=== PATIENT | female | born 2000 | race American Indian/Alaskan Native ===

== ENCOUNTER 2018-06-21 07:39 | Emergency (ER) | payer SELFPAY ==
[2018-06-21 09:00] LABS: Basophils # (Auto) 0.1 K/mm3 (0.0-0.1); Basophils % (Auto) 0.4 % (0.0-1.8); Eosinophils % (Auto) 0.1 % (0.0-4.3); Hematocrit 37.4 % (30.3-42.9); Hemoglobin 12.2 gm/dl (10.1-14.3); Lymphocytes # (Auto) 1.1 K/mm3 (1.2-5.4); Lymphocytes % (Auto) 7.9 % (13.4-35.0); Mean Corpuscular HGB Conc 33 % (30-34); Mean Corpuscular Hemoglobin 26 pg (28-32); Mean Corpuscular Volume 81 fl (79-97); Monocytes # (Auto) 1.1 K/mm3 (0.0-0.8); Monocytes % (Auto) 7.7 % (0.0-7.3); Platelet Count 198 K/mm3 (140-440); Red Blood Count 4.64 M/mm3 (3.65-5.03)
[2018-06-21 09:21] LABS: Bilirubin,Urine NEG (Negative); Blood,Urine NEG (Negative); Color,Urine Yellow (Yellow); Mucus,Urine 3+ /HPF
[2018-06-21 09:24] LABS: Alanine Aminotransferase 11 units/L (7-56); Albumin 4.9 g/dL (3.9-5); BUN/Creatinine Ratio 14; Blood Urea Nitrogen 7 mg/dL (7-17); Calcium 9.4 mg/dL (8.4-10.2); Hemolysis Index 6
[2018-06-21] MEDS ORDERED: TORADOL IV ONE (09:51)
[2018-06-21] MEDS ORDERED: ZOFRAN IV ONE (09:51)
[2018-06-21] MEDS ORDERED: PEPCID IV ONE (09:51)
--- NOTE | 2018-06-21 09:54 | Emergency Department Report ---
Blank Doc - Documentation Documentation: Patient is a 17-year-old -[place] female states for the past 3-4 days she's had central suprapubic abdominal pain. Patient states that she's had episodes of chills. Patient vomited this morning before arrival. Patient states she's has some loose stools that she feels has scant amount of blood in it. Patient denies having any dysuria or vaginal bleeding at this time. Focused physical exam patient has lower bilateral abdominal pain. Is no rebound or guarding she does have bowel sounds. Patient is in moderate distress secondary to pain and is crying on exam. Patient does appear uncomfortable. Laboratory studies will be reviewed patient will have a CT of abdomen and pelvis performed. Patient will be reassessed
[2018-06-21] MEDS ORDERED: D5NS 1,000 ML IV SCH (10:00)
--- NOTE | 2018-06-21 11:28 | Emergency Department Report ---
ED Abdominal Pain HPI - General Chief Complaint: Abdominal Pain Stated Complaint: CHEST PAINS/STOMACH PAIN/CHILLS Time Seen by Provider: 06/21/18 09:48 Source: patient Mode of arrival: Ambulatory Limitations: No Limitations - History of Present Illness Initial Comments: This is a 17-year-old female nontoxic, well nourished in appearance, no acute signs of distress presents to the ED with c/o of nausea and vomiting and abdominal pain 1 week. Patient describes vomiting as food content and yellow gastric acid with some red colored as well. Patient also stated has chills and subjective fever. Patient describes abdominal pain as cramping and aching with level of 8/10 primarily in the left pelvic area. Patient stated has some loose stools with scant amount of blood. Patient denies chest pain, short of breath, fever, chills, headache, stiff neck, numbness or tingling. Patient denies any diarrhea or constipation. Patient denies any recent travels. Patient denies any urinary symptoms. Patient stated denies any drug allergies. PMH includes sickle cell trait. MD Complaint: abdominal pain -: week(s) (1) Radiation: none Migration to: no migration Severity: mild Severity scale (0 -10): 8 Quality: cramping, aching Consistency: constant Improves With: nothing Worsens With: nothing Associated Symptoms: nausea, vomiting, fever, chills, hematochezia. denies: diarrhea, constipation, dysuria, hematemesis, melena, hematuria, anorexia, syncope - Related Data Previous Rx's Medication Instructions Recorded Last Taken Type cephALEXin [Keflex] 500 mg PO TID #15 capsule 11/06/13 Unknown Rx Acetaminophen 500 mg PO Q8H PRN #30 tablet 06/21/18 Unknown Rx Ondansetron [Zofran Odt] 4 mg PO Q8HR PRN #20 tab.rapdis 06/21/18 Unknown Rx Allergies Allergy/AdvReac Type Severity Reaction Status Date / Time No Known Allergies Allergy Unverified 11/06/13 20:28 ED Review of Systems ROS: Stated complaint: CHEST PAINS/STOMACH PAIN/CHILLS Other details as noted in HPI Constitutional: chills, fever Eyes: denies: eye pain, eye discharge, vision change ENT: denies: ear pain, throat pain Respiratory: denies: cough, shortness of breath, wheezing Cardiovascular: denies: chest pain, palpitations Endocrine: no symptoms reported Gastrointestinal: abdominal pain, nausea, vomiting, hematochezia. denies: diarrhea, constipation Genitourinary: denies: urgency, dysuria, discharge Musculoskeletal: denies: back pain, joint swelling, arthralgia Skin: denies: rash, lesions Neurological: denies: headache, weakness, paresthesias Psychiatric: denies: anxiety, depression Hematological/Lymphatic: denies: easy bleeding, easy bruising ED Past Medical Hx - Past Medical History Previous Medical History?: Yes Additional medical history: sickle cell trait - Surgical History Past Surgical History?: Yes Additional Surgical History: hernia repair - Social History Smoking Status: Current Every Day Smoker Substance Use Type: Marijuana - Medications Home Medications: Home Medications Medication Instructions Recorded Confirmed Last Taken Type cephALEXin [Keflex] 500 mg PO TID #15 capsule 11/06/13 Unknown Rx Acetaminophen 500 mg PO Q8H PRN #30 tablet 06/21/18 Unknown Rx Ondansetron [Zofran Odt] 4 mg PO Q8HR PRN #20 tab.rapdis 06/21/18 Unknown Rx ED Physical Exam - General Limitations: No Limitations General appearance: alert, in no apparent distress - Head Head exam: Present: atraumatic, normocephalic - Eye Eye exam: Present: normal appearance Pupils: Present: normal accommodation - ENT ENT exam: Present: normal exam, mucous membranes moist - Neck Neck exam: Present: normal inspection, full ROM. Absent: tenderness, meningismus, lymphadenopathy - Respiratory Respiratory exam: Present: normal lung sounds bilaterally. Absent: respiratory distress, wheezes, rales, rhonchi, stridor, chest wall tenderness, accessory muscle use, decreased breath sounds, prolonged expiratory - Cardiovascular Cardiovascular Exam: Present: regular rate, normal rhythm, normal heart sounds. Absent: irregular rhythm, systolic murmur, diastolic murmur, rubs, gallop - GI/Abdominal GI/Abdominal exam: Present: soft, tenderness (left pelvic side), normal bowel sounds. Absent: distended, guarding, rebound, rigid, diminished bowel sounds, hyperactive bowel sounds, hypoactive bowel sounds, organomegaly, bruit, pulsatile mass - Expanded GI/Abdominal Exam Expanded GI/Abdominal exam: Absent: psoas sign, obturator sign, Kumar's sign, tenderness at Mcburney's Point, ascites - Rectal Rectal exam: Present: normal rectal tone, heme (+) stool, other (adapted physical education aide RN present during exam). Absent: decreased rectal tone, heme (-) stool, black stool, fecal impaction, hemorrhoids, mass, tenderness - Extremities Exam Extremities exam: Present: normal inspection, full ROM, normal capillary refill - Back Exam Back exam: Present: normal inspection, full ROM. Absent: tenderness, CVA tenderness (R), CVA tenderness (L), muscle spasm, paraspinal tenderness, vertebral tenderness, rash noted - Neurological Exam Neurological exam: Present: alert, oriented X3, normal gait - Psychiatric Psychiatric exam: Present: normal affect, normal mood - Skin Skin exam: Present: warm, dry, intact, normal color. Absent: rash ED Course Vital Signs 06/21/18 06/21/18 08:22 11:20 Temperature 98.9 F Pulse Rate 94 H Respiratory 20 20 Rate Blood Pressure 108/67 O2 Sat by Pulse 98 Oximetry - Reevaluation(s) Reevaluation #1: 06/21/18 11:34 Patient is speaking in full sentences with no signs of distress noted. - Consultations Consultation #1: 06/21/18 11:34 Patient has been consulted with Tamy Rodrigez about patient history, physical exam, and labs and examined and screened patient and agrees to ED plan of care. ED Medical Decision Making - Lab Data Result diagrams: 06/21/18 08:38 06/21/18 08:38 - Medical Decision Making This is a 17-year-old female that presents with n/v and left ovary cyst. Patient is stable and was examined by me and Dr. Sen. There is slight abdominal tenderness to left pelvic area. Negative signs of symptoms of appendicitis. Labs obtained. UA obtained. CT with contrast of abdomen obtained and dictated by the radiologist. Results discussed with Dr. Sen and patient to be discahrged with f/u with GI/[facility]. Patient is notified of the report with no questions noted by the patient. Vital signs are stable prior to discharge. Patient received meds and 1L saline in the ED which patient stated symptoms has resoled and subsided. A by mouth challenge has been obtained and patient tolerated well with no nausea vomiting. Patient was notified of strict precatuions of appendicitis symptoms and to return to the ED if symptoms occurs as soon as possible. Patient was also instructed to Follow-up with a primary care/GI/[facility] doctor in 3-5 days or if symptoms worsen and continue return to emergency room as soon as possible. At time of discharge, the patient does not seem toxic or ill in appearance. No acute signs of distress noted. Patient agrees to discharge treatment plan of care. No further questions noted by the patient. Critical care attestation.: If time is entered above; I have spent that time in minutes in the direct care of this critically ill patient, excluding procedure time. ED Disposition Clinical Impression: Left ovarian cyst Nausea & vomiting Qualifiers: Vomiting type: unspecified Vomiting Intractability: non-intractable Qualified Code(s): R11.2 - Nausea with vomiting, unspecified Disposition: - TO HOME OR SELFCARE Is pt being admited?: No Does the pt Need Aspirin: No Condition: Stable Instructions: Abdominal Pain (ED), Ovarian Cyst (ED), Acute Nausea and Vomiting (ED) Additional Instructions: Follow-up with a primary care/[employer] [employer] [facility] in 3-5 days or if symptoms worsen and continue return to emergency room as soon as possible. Prescriptions: Acetaminophen 500 mg PO Q8H PRN #30 tablet PRN Reason: Pain , Severe (7-10) Ondansetron [Zofran Odt] 4 mg PO Q8HR PRN #20 tab.rapdis PRN Reason: nausea Referrals: PRIMARY CARE, [Primary Care Provider] - 3-5 Days CHERI QUINN MD [Staff Physician] - 3-5 Days [facility] [Outside] - 3-5 Days [facility] [Outside] - 3-5 Days LARA GÓMEZ MD [Staff Physician] - 3-5 Days [facility] [Provider Group] - 3-5 Days Forms: Work/School Release Form(ED)
--- NOTE | 2018-06-21 11:35 | Cat Scan Report ---
CT ABDOMEN PELVIS WITH CONTRAST: HISTORY: Nausea and vomiting, abdominal pain. COMPARISON: none. TECHNIQUE: Helical CT in 1.25mm intervals following IV contrast. Sagittal and coronal reconstructions. FINDINGS: Lung bases: Normal. Liver: Mild fatty changes are noted throughout the liver. No enlargement or focal mass. Biliary system: Normal. Pancreas: Normal. Spleen: Normal. Kidneys/ureters/bladder: There are a few focal areas of cortical scarring in the inferior left kidney suggesting previous episodes of pyelonephritis. 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 No evidence for renal cystic disease, mass or hydronephrosis. Adrenal glands: Normal. Aorta: Normal. Intestines: Within normal limits given no oral contrast was administered. Appendix: Not confidently identified. Pelvic viscera: A 2.7 cm left ovarian cyst is identified. The uterus and right adnexa are unremarkable. Ascites: None. Adenopathy: None. Musculoskeletal: Normal. IMPRESSION: 2.7 cm left ovarian cyst. Chronic cortical scarring in the left kidney. 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 Mild fatty change in the liver. No acute inflammatory process is identified.
[2018-06-21 12:30] VITALS: BP 110/71
== END 2018-06-21 12:27 | disposition home or self-care (01) ==
LOC: ED 07:39
DX: N83.202 Unspecified ovarian cyst, left side (principal); R11.2 Nausea with vomiting, unspecified; D57.3 Sickle-cell trait; F17.200 Nicotine dependence, unspecified, uncomplicated; F12.10 Cannabis abuse, uncomplicated
CPT/HCPCS: 36415; 74177; 80053; 81001; 84703; 85025; 93005; 93010; 96361; 96374; 96375; 99284; J1885; J2405; J7042; Q9967